=== PATIENT | male | born 1950 | race Caucasian/White ===

== ENCOUNTER 2022-05-17 15:18 | Outpatient (CLI) | payer OTHER | END 2022-05-17 15:19 | disposition home or self-care (01) | LOC: CSHMRI 15:18 | PROVIDERS: ATTEND Registered Nurse | DX: M47.816 Spondylosis without myelopathy or radiculopathy, lumbar region (principal); M48.061 Spinal stenosis, lumbar region without neurogenic claudication; Z98.890 Other specified postprocedural states | CPT/HCPCS: 72148 ==

== ENCOUNTER 2025-01-31 08:49 | Outpatient (CLI) | payer OTHER | END 2025-01-31 08:50 | disposition home or self-care (01) | LOC: CSHMRI 08:49 | PROVIDERS: ATTEND Psychiatry & Neurology Neurology | DX: M54.10 Radiculopathy, site unspecified (principal); M54.9 Dorsalgia, unspecified | CPT/HCPCS: 72141; 72148 ==